=== PATIENT | female | born 1935 | race Caucasian/White ===

== ENCOUNTER → 2020-08-21 | Outpatient (CLI) | payer MEDICARE, OTHER | LOC: KOH-I 10:23 | DX: S06.5X9A Traumatic subdural hemorrhage with loss of consciousness of unspecified duration, initial encounter (principal); G31.9 Degenerative disease of nervous system, unspecified | CPT/HCPCS: 70450; 70486 ==

== ENCOUNTER 2021-04-18 12:41 | Observation (INO) | payer MEDICARE, OTHER ==
[~2021-04-18] VITALS: Ht 160 cm; Wt 52.2 kg
[2021-04-18 15:09] LABS: HEMOGLOBIN 13.1 gm/dl (12.3-15.3); RED BLOOD COUNT 4.23 M/UL (4.00-5.10)
[2021-04-18 15:33] LABS: BUN/CREATININE RATIO 19 (0-10)
[2021-04-18] MEDS ORDERED: HYDROCODON-ACE1 EAC4 PO (21:59)
[2021-04-18] MEDS ORDERED: NITRO-TIME2.5 MG PO (21:59)
[2021-04-18] MEDS ORDERED: FUROSEMIDE20 MG PO (22:00)
[2021-04-18] MEDS ORDERED: METOPROLOL SUCC25 MG PO (22:00)
[2021-04-18] MEDS ORDERED: SYNTHROID125 MCG PO (22:01)
[2021-04-18] MEDS ORDERED: ALPRAZOLAM 0.0.25 MG PO (22:01)
[2021-04-18] MEDS ORDERED: PROTONIX 40 MG40 M1 PO (22:02)
[2021-04-18] MEDS ORDERED: MECLIZINE HCL12.5 MG PO (22:02)
[2021-04-18] MEDS ORDERED: ASPIRIN81 MG PO (22:03)
[2021-04-18] MEDS ORDERED: SENOKOT8.6 MG PO (22:03)
[2021-04-18] MEDS ORDERED: CYMBALTA20 MG PO (22:03)
[2021-04-18] MEDS ORDERED: PREMARIN 0.60.625 MG PO (22:04)
[2021-04-18] MEDS ORDERED: IMODIUM CAP 2 MG2 MG PO (22:05)
[2021-04-19 02:18] LABS: RED BLOOD COUNT 3.91 M/UL (4.00-5.10); WHITE BLOOD COUNT 9.4 K/UL (4.5-11.0)
== END 2021-04-19 14:26 | disposition home or self-care (01) ==
LOC: ER1 12:41 → M/S 18:48 → CDU 18:48 → M/S 21:30
PROVIDERS: Family Medicine; ADMIT Internal Medicine
DX: I21.4 Non-ST elevation (NSTEMI) myocardial infarction (principal); G43.909 Migraine, unspecified, not intractable, without status migrainosus; I25.10 Atherosclerotic heart disease of native coronary artery without angina pectoris; M79.7 Fibromyalgia; F41.9 Anxiety disorder, unspecified; I87.8 Other specified disorders of veins; I12.9 Hypertensive chronic kidney disease with stage 1 through stage 4 chronic kidney disease, or unspecified chronic kidney disease; N18.30 Chronic kidney disease, stage 3 unspecified; E78.5 Hyperlipidemia, unspecified; K21.9 Gastro-esophageal reflux disease without esophagitis; G89.29 Other chronic pain; N39.0 Urinary tract infection, site not specified; E03.9 Hypothyroidism, unspecified; Z86.79 Personal history of other diseases of the circulatory system; Z95.5 Presence of coronary angioplasty implant and graft; Z88.6 Allergy status to analgesic agent; Z88.5 Allergy status to narcotic agent; Z86.16 Personal history of COVID-19; Z82.49 Family history of ischemic heart disease and other diseases of the circulatory system; Z20.822 Contact with and (suspected) exposure to COVID-19
CPT/HCPCS: ECHO; 71045; 80053; 80061; 81001; 82550; 82553; 83036; 83735; 83874; 84439; 84443; 84484; 85025; 85027; 85610; 85730; 93005; 93306; 96374; 97162; 97530; 99285; G0378; J1644; U0002